=== PATIENT | female | born 1990 | race Hispanic/Latino ===

== ENCOUNTER 2016-12-13 18:18 | Emergency (ER) | payer OTHER | END 2016-12-13 20:41 | disposition left against medical advice (07) | LOC: M ED 18:18 | DX: Z53.29 Procedure and treatment not carried out because of patient's decision for other reasons (principal) ==

== ENCOUNTER 2017-02-01 15:44 | Emergency (ER) | payer OTHER ==
[~2017-02-01] VITALS: Ht 170.2 cm; Wt 68.0 kg
[2017-02-01] MEDS ORDERED: diphenhydrAMINE INJ 50MG/ML VIAL (J1200) IV ONE (18:00)
[2017-02-01] MEDS ORDERED: METOCLOPRAMIDE INJ 10MG/2ML VIAL (J2765) IV ONE (18:00)
[2017-02-01] MEDS ORDERED: NS 1,000 ML IV ONE (18:00)
[2017-02-01] MEDS ORDERED: KETOROLAC 30 MG/ML VIAL (J1885) IV ONE (18:00)
[2017-02-01 18:07] LABS: CONTROL LINE UCG INT CTR LINE PRESENT
[2017-02-01 18:32] LABS: BASO % 0.4 % (0.0-1.0); EOS # 0.1 K/mm3 (0.0-0.50); EOS % 1.6 % (0.0-3.0); LARGE UNSTAINED CELL # 0.2 K/mm3 (0.0-0.4); LARGE UNSTAINED CELL % 1.8 % (0.0-4.0); LYMPH # 2.9 K/mm3 (1.5-6.5); LYMPH % 30.4 % (24.0-44.0); MEAN CORPUSCULAR HEMOGLOBIN 29.3 pg (27.0-33.0); MEAN CORPUSCULAR HGB CONC 32.3 g/dl (32.0-36.5); MEAN CORPUSCULAR VOLUME 90.9 fl (80.0-96.0); MONO # 0.5 K/mm3 (0.0-0.8); MONO % 5.1 % (0.0-5.0); NEUTROPHILS # 5.5 K/mm3 (1.8-7.7); NEUTROPHILS % 60.7 % (36.0-66.0); PLATELET COUNT, AUTOMATED 284 k/mm3 (150-450); RED CELL DISTRIBUTION WIDTH 13.9 % (11.5-14.5)
[2017-02-01 18:48] LABS: ANION GAP 8 MEQ/L (8-16); BLOOD UREA NITROGEN 7 MG/DL (7-18); CALCIUM LEVEL 8.5 MG/DL (8.5-10.1); CARBON DIOXIDE LEVEL 28 MEQ/L (21-32); CHLORIDE LEVEL 104 MEQ/L (98-107); GLOMERULAR FILTRATION RATE > 60.0 (>60); GLUCOSE, FASTING 74 MG/DL (70-105); POTASSIUM SERUM 3.1 MEQ/L (3.5-5.1); SODIUM LEVEL 140 MEQ/L (136-145)
--- NOTE | 2017-02-01 19:10 | REPUSA ---
CLINICAL HISTORY: Headaches. TECHNIQUE: Multiple axial brain CT scan sections were obtained from base to vertex without contrast a dministration. COMMENTS: The study shows normal configuration of sella turcica. There are no intra or extra-axial collections. There is no mass effect or midline shift. There is no evidence of hematoma formation. No hydrocephal us is present. No abnormal calcifications are noted. No significant abnormalities are seen either in the posterior fossa or supratentorial compartment. The sinuses and mastoid air cells are patent. IMPRESSION: No evidence of acute intracranial pathology. Thank you for your kind referral of this patient.
[2017-02-01 19:39] VITALS: BP 111/62
[2017-02-01] MEDS ORDERED: IBUP80TA PO (19:42)
[2017-02-01] MEDS ORDERED: K-TA10TA2 PO (19:42)
[2017-02-04 00:08] LABS: IgG P18 AB Absent (.); IgG P23 AB Absent (.); IgG P28 AB Absent (.); IgG P30 AB Absent (.); IgG P41 AB Present (.); IgG P45 AB Absent (.); IgG P58 AB Absent (.); IgG P66 AB Absent (.); IgG P93 AB Absent (.); IgM P39 AB Absent (.); IgM P41 AB Present (.)
== END 2017-02-01 20:02 | disposition home or self-care (01) ==
LOC: M ED 18:27
DX: T68.XXXA Hypothermia, initial encounter (principal); R51 Headache
CPT/HCPCS: 70450; 80048; 84703; 85025; 86617; 96361; 96374; 96375; 99283; J1200; J1885; J2765

== ENCOUNTER 2017-02-28 15:18 | Emergency (ER) | payer OTHER ==
[~2017-02-28] VITALS: Ht 172.7 cm; Wt 62.8 kg
[~2017-02-28 15:18] MED LIST: IBUP80TA PO; K-TA10TA2 PO
[2017-02-28] MEDS ORDERED: TOPI200T4 PO (15:44)
[2017-02-28] MEDS ORDERED: TIZA2CAP3 PO (15:44)
[2017-02-28 17:08] VITALS: BP 130/80
== END 2017-02-28 17:10 | disposition home or self-care (01) ==
LOC: M ED 17:10
DX: Z32.01 Encounter for pregnancy test, result positive (principal)

== ENCOUNTER → 2017-03-24 | Outpatient (CLI) | payer OTHER ==
[~2017-03-24] MED LIST changes: +TIZA2CAP3 PO; +TOPI200T4 PO
[2017-03-24 13:22] LABS: BASO % 0.2 % (0.0-1.0); EOS # 0.1 K/mm3 (0.0-0.50); EOS % 0.6 % (0.0-3.0); LARGE UNSTAINED CELL # 0.1 K/mm3 (0.0-0.4); LARGE UNSTAINED CELL % 1.1 % (0.0-4.0); LYMPH # 1.1 K/mm3 (1.5-6.5); LYMPH % 11.7 % (24.0-44.0); MEAN CORPUSCULAR HEMOGLOBIN 31.1 pg (27.0-33.0); MEAN CORPUSCULAR HGB CONC 34.2 g/dl (32.0-36.5); MONO # 0.4 K/mm3 (0.0-0.8); MONO % 4.7 % (0.0-5.0); NEUTROPHILS # 7.6 K/mm3 (1.8-7.7); NEUTROPHILS % 81.6 % (36.0-66.0); PLATELET COUNT, AUTOMATED 274 k/mm3 (150-450); RED CELL DISTRIBUTION WIDTH 14.2 % (11.5-14.5); WHITE BLOOD COUNT 9.3 K/mm3 (4.0-10.0)
[2017-03-25 11:11] LABS: HBsAg Prenatal NEGATIVE (NEGATIVE)
== END ==
LOC: M SMT 09:55
PROVIDERS: ATTEND Specialist
DX: Z34.01 Encounter for supervision of normal first pregnancy, first trimester (principal)

== ENCOUNTER → 2017-06-08 | Outpatient (CLI) | payer OTHER ==
[~2017-06-08] MED LIST changes: +OXYC1TAB23 PO; +PRENTAB9 PO; -TOPI200T4 PO; +TOPI200T7 PO
== END ==
LOC: M SMT 11:46
PROVIDERS: ATTEND Advanced Practice Midwife
DX: Z13.71 Encounter for nonprocreative screening for genetic disease carrier status (principal)

== ENCOUNTER 2017-06-11 07:29 | Outpatient (CLI) | payer OTHER ==
[~2017-06-11] VITALS: Ht 172.7 cm; Wt 62.0 kg
[~2017-06-11 07:29] MED LIST changes: -OXYC1TAB23 PO; -PRENTAB9 PO
[2017-06-11 07:47] VITALS: BP 112/68
[2017-06-11] MEDS ORDERED: PRENTAB9 PO (07:50)
[2017-06-11 09:04] LABS: MEAN CORPUSCULAR HEMOGLOBIN 31.9 pg (27.0-33.0); MEAN CORPUSCULAR HGB CONC 34.4 g/dl (32.0-36.5); MEAN CORPUSCULAR VOLUME 92.7 fl (80.0-96.0); RED CELL DISTRIBUTION WIDTH 13.1 % (11.5-14.5); WHITE BLOOD COUNT 8.2 K/mm3 (4.0-10.0)
== END 2017-06-11 10:40 | disposition home or self-care (01) ==
LOC: M LDO 07:29
PROVIDERS: ATTEND Obstetrics & Gynecology
DX: O26.892 Other specified pregnancy related conditions, second trimester (principal); R10.2 Pelvic and perineal pain; Z3A.20 20 weeks gestation of pregnancy

== ENCOUNTER → 2017-07-27 | Outpatient (CLI) | payer OTHER ==
[~2017-07-27] MED LIST changes: +OXYC1TAB23 PO; +PRENTAB9 PO
[2017-07-27 17:56] LABS: MEAN CORPUSCULAR HEMOGLOBIN 32.5 pg (27.0-33.0); MEAN CORPUSCULAR HGB CONC 34.1 g/dl (32.0-36.5); MEAN CORPUSCULAR VOLUME 95.3 fl (80.0-96.0); RED CELL DISTRIBUTION WIDTH 13.4 % (11.5-14.5); WHITE BLOOD COUNT 9.3 K/mm3 (4.0-10.0)
== END ==
LOC: M SMT 11:05
PROVIDERS: ATTEND Obstetrics & Gynecology
DX: Z34.82 Encounter for supervision of other normal pregnancy, second trimester (principal)

== ENCOUNTER 2017-08-15 20:04 | Day surgery (SDC) | payer OTHER ==
[2017-08-15] VITALS (7 sets, daily range): BP systolic 110–143; BP diastolic 57–86
[~2017-08-15] VITALS: Ht 162.6 cm; Wt 70.3 kg
[2017-08-15] MEDS: SIMETHICONE 80 MG CHEW TAB PO SCH ×2 (09:49→16:00)
[2017-08-15] MEDS: FAMOTIDINE 20 MG TAB PO SCH ×2 (10:13→21:00)
--- NOTE | 2017-08-15 13:04 | REP ---
Renal ultrasound: The per the patient is approximate 29 weeks gestational age and complains of right flank pain. The kidneys are normal size. The right kidney measures 14 by 6 x 5 cm. Left kidney measures 12 x 6 x 6 cm. Renal cortical echogenicity is normal bilaterally. There is mild right hydronephrosis. There is no left hydronephrosis. There are no renal cysts, masses or calculi. The Doppler resistive index of the intraparenchymal arteries of the right kidney is 0.64 and left kidney 0.71. Bladder ultrasound: With color Doppler assessment there are bilateral ureteral jets into the urinary bladder. There are no bladder wall polyps or masses. Impression: There is mild right hydronephrosis. There is no left hydronephrosis. However, there are bilateral ureteral jets into the urinary bladder. Otherwise, essentially negative renal and bladder ultrasound. The heart rate is 153 beats per minute. Signed by Joe Lyman MD 08/15/2017 12:55 P
--- NOTE | 2017-08-15 13:05 | ED PDOC ---
Provider Note Pt reports extreme R groin pain extending to R flank. Pt reports pain is "constant", not rhythmic Abdomen soft, no UC on monitor. FH reassuring, Cat I Pt has tolerated small amounts PO diet Renal scan ordered. Luisa Harrison CNM Aug 15, 2017 13:05
[2017-08-15 14:14] LABS: BASO % 0.1 % (0.0-1.0); EOS % 0.2 % (0.0-3.0); LARGE UNSTAINED CELL # 0.2 K/mm3 (0.0-0.4); LARGE UNSTAINED CELL % 1.2 % (0.0-4.0); LYMPH # 1.1 K/mm3 (1.5-6.5); LYMPH % 8.2 % (24.0-44.0); MEAN CORPUSCULAR HEMOGLOBIN 32.7 pg (27.0-33.0); MEAN CORPUSCULAR HGB CONC 35.6 g/dl (32.0-36.5); MEAN CORPUSCULAR VOLUME 91.8 fl (80.0-96.0); MONO # 0.6 K/mm3 (0.0-0.8); MONO % 4.6 % (0.0-5.0); NEUTROPHILS # 11.3 K/mm3 (1.8-7.7); NEUTROPHILS % 85.8 % (36.0-66.0); PLATELET COUNT, AUTOMATED 212 k/mm3 (150-450); RED CELL DISTRIBUTION WIDTH 12.8 % (11.5-14.5); WHITE BLOOD COUNT 13.1 K/mm3 (4.0-10.0)
[2017-08-15 14:35] LABS: ALBUMIN 2.7 GM/DL (3.2-5.2); ALKALINE PHOSPHATASE 77 U/L (45-117); ALT/SGPT 15 U/L (12-78); ANION GAP 7 MEQ/L (8-16); AST/SGOT 10 U/L (15-37); BILIRUBIN,TOTAL 0.3 MG/DL (0.2-1.0); BLOOD UREA NITROGEN 4 MG/DL (7-18); CARBON DIOXIDE LEVEL 26 MEQ/L (21-32); CHLORIDE LEVEL 105 MEQ/L (98-107); CREATININE FOR GFR 0.42 MG/DL (0.55-1.02); GLOMERULAR FILTRATION RATE > 60.0 (>60); GLUCOSE, FASTING 82 MG/DL (70-105); POTASSIUM SERUM 3.8 MEQ/L (3.5-5.1); SODIUM LEVEL 138 MEQ/L (136-145); TOTAL PROTEIN 7.2 GM/DL (6.4-8.2)
--- NOTE | 2017-08-15 14:40 | ED PDOC ---
Provider Note Reviewed pt reports of previous appendicitis, pain status, labs and renal sono with Dr Scott. MRI, no contrast ordered per consult. Luisa Harrison CNM Aug 15, 2017 14:40
--- NOTE | 2017-08-15 16:50 | REP ---
Limited pelvic right lower quadrant sonography: History: Right lower quadrant pain. Question appendicitis. Findings: Scanning through the right lower quadrant of the abdomen is performed. heart rate is documented at 153 beats per minute in this patient. The appendix is not directly visualized. The right ovary is seen measuring 3.1 x 1.8 x 2.1 cm. It contains a 1.2 cm follicle cyst or corpus luteum cyst. No free fluid is seen. No evidence of abscess. Impression: Appendix not directly visualized. Normal right ovary seen. No free fluid, abscess or inflammatory change is seen by ultrasound. Signed by Killian Thomas MD 08/15/2017 06:54 P
--- NOTE | 2017-08-15 18:10 | REP ---
MRI abdomen and pelvis without contrast: History: Right lower quadrant pain. Question appendicitis. History of . Appendix not directly visualized by ultrasound. ERIC by prior sonography October 30, 2017. Technique: Axial, coronal and sagittal imaging planes are utilized. T1 and T2-weighted images are obtained. MRI findings: The appendix is fluid-filled with mild mural thickening and some periappendiceal fluid posterior to the lateral margin of the gravid uterus and just superior and medial to normal-appearing right maternal ovary. The findings are compatible with early acute appendicitis. There is a 6 mm low T1, low T2 signal intensity focus in the appendix above the fluid distended segment consistent with an appendicolith. No abscess is seen. The left maternal ovary is unremarkable, also displaced superior and laterally by the . A breech fetus is seen. An anterior placenta is noted with no evidence of previa. No morphologic or uterine abnormality. There is moderate right-sided hydronephrosis and hydroureter. Impression: MR findings compatible with early acute appendicitis, probable appendicolith. The appendix is dilated with mural thickening and mild pericolonic fluid. No abscess or free air is seen. The appendix is located just superior and medial to the right ovary. Moderate right-sided hydronephrosis is seen. Signed by Killian Thomas MD 08/15/2017 06:56 P
--- NOTE | 2017-08-15 18:56 | ED PDOC ---
Provider Note Item Value Date Time White Blood Count 13.1 K/mm3 H 08/15/17 1351 Hemoglobin 11.1 g/dl L 08/15/17 1351 Red Blood Count 3.39 M/mm3 L 08/15/17 1351 Hematocrit 31.1 % L 08/15/17 1351 Mean Corpuscular Volume 91.8 fl 08/15/17 1351 Mean Corpuscular Hemoglobin 32.7 pg 08/15/171 Mean Corpuscular Hemoglobin Concent 35.6 g/dl 08/15/171 Red Cell Distribution Width 12.8 % 08/15/17 1351 Platelet Count 212 k/mm3 08/15/17 1351 Neutrophils (%) (Auto) 85.8 % H 08/15/17 1351 Lymphocytes (%) (Auto) 8.2 % L 08/15/17 1351 Monocytes (%) (Auto) 4.6 % 08/15/17 1351 Eosinophils (%) (Auto) 0.2 % 08/15/17 1351 Basophils (%) (Auto) 0.1 % 08/15/171 Large Unclassified Cells % 1.2 % 08/15/17 1351 Neutrophils # (Auto) 11.3 K/mm3 H 08/15/17 1351 Lymphocytes # (Auto) 1.1 K/mm3 L 08/15/17 1351 Monocytes # (Auto) 0.6 K/mm3 08/15/17 1351 Eosinophils # (Auto) 0.0 K/mm3 08/15/17 1351 Basophils # (Auto) 0.0 K/mm3 08/15/17 1351 Large Unclassified Cells # 0.2 K/mm3 08/15/17 1351 27-year-old 2, para 1001, estimated date of delivery 10/28/2017, presents at 29 weeks 3 days with reports of abrupt onset of nausea, vomiting and right lower quadrant pain at midnight. Upon initial evaluation on labor and delivery by Dr. Ghotra. Patient was found to be davis. She received IV fluids and terbutaline 1 dose with resolution of the contractions. Electronic heart monitoring has remained reassuring. MRI findings were compatible with early acute appendicitis. Per consultation Dr. Scott, Dr. Chiu was notified and requested to consult. Luisa Harrison CNM Aug 15, 2017 18:56
[~2017-08-15 20:04] MED LIST changes: +ACETAMINOPHEN 500 MG TAB PO ONE; +BUPIVACAINE HCL 0.25% 30 ML VIAL As Ordered ONE; +NS 1,000 ML IV ONE; +NS 1,000 ML IV SCH; -OXYC1TAB23 PO; +PIPERACILLIN/TAZOBACTAM SOD 3.375 GM in D5W MINI-BAG PLUS 50 ML IV ONE; +SIMETHICONE 80 MG CHEW TAB PO PRN; +TERBUTALINE SULFATE 1 MG/ML VIAL (J3105) As Ordered ONE; +TERBUTALINE SULFATE 1 MG/ML VIAL (J3105) SC ONE
[2017-08-15] MEDS ORDERED: LIDOCAINE 2% INJ 100 MG/5 ML SDV (FOR ANES.) As Ordered ONE (20:10)
[2017-08-15] MEDS ORDERED: fentaNYL 100 MCG/2 ML INJECTION (J3010) As Ordered ONE ×3 (20:10→22:56)
[2017-08-15] MEDS ORDERED: PROPOFOL 200 MG/20 ML VIAL As Ordered ONE (20:10)
[2017-08-15] MEDS ORDERED: ROCURONIUM BROMIDE 50 MG/5 ML VIAL/SYRINGE As Ordered ONE (20:10)
[2017-08-15] MEDS ORDERED: MIDAZOLAM INJ 2 MG/2 ML VIAL (J2250) As Ordered ONE (20:52)
[2017-08-15] MEDS ORDERED: PHENYLephrine HCL 500 MCG/5 ML (100MCG/ML) SYRINGE (J2370) As Ordered ONE (21:17)
[2017-08-15] MEDS ORDERED: SUCCINYLCHOLINE 100 MG/5 ML SYRINGE (J0330) As Ordered ONE (21:20)
[2017-08-15] MEDS ORDERED: GLYCOPYRROLATE INJ 0.2 MG/ML 2 ML VIAL As Ordered ONE (21:27)
[2017-08-15] MEDS ORDERED: ONDANSETRON 4MG/2ML VIAL (J2405) As Ordered ONE (21:27)
[2017-08-15] MEDS ORDERED: NEOSTIGMINE 10 MG/10 ML VIAL (J2710) As Ordered ONE (21:27)
[2017-08-15] MEDS ORDERED: ACETAMINOPHEN TAB 650MG DOSE (2X325MG) PO PRN (22:45)
[2017-08-15] MEDS ORDERED: MORPHINE 2 MG/ML 1ML SYRINGE IV PRN (22:45)
[2017-08-15] MEDS ORDERED: METOCLOPRAMIDE INJ 10MG/2ML VIAL (J2765) IV PRN (22:45)
[2017-08-15] MEDS ORDERED: ONDANSETRON 4MG/2ML VIAL (J2405) IV PRN (22:45)
[2017-08-15] MEDS ORDERED: LR 1,000 ML IV SCH (22:45)
[2017-08-15] MEDS: fentaNYL 100 MCG/2 ML INJECTION (J3010) IV PRN ×2 (22:59→23:04)
[2017-08-16] VITALS (10 sets, daily range): BP systolic 100–124; BP diastolic 52–67
[2017-08-16] MEDS ORDERED: fentaNYL 100 MCG/2 ML INJECTION (J3010) IV PRN (00:30)
[2017-08-16] MEDS ORDERED: LR 1,000 ML IV SCH (00:30)
[2017-08-16] MEDS ORDERED: METOCLOPRAMIDE INJ 10MG/2ML VIAL (J2765) IV PRN (00:30)
[2017-08-16] MEDS ORDERED: ONDANSETRON 4MG/2ML VIAL (J2405) IV PRN (00:30)
[2017-08-16] MEDS: NORCO, ANEXSIA 5/325MG TABLET (HYDROcodone/ACETAMINOPHEN) PO PRN ×5 (02:08→21:22)
[2017-08-16] MEDS: PIPERACILLIN/TAZOBACTAM SOD 3.375 GM in D5W MINI-BAG PLUS 50 ML IV SCH ×3 (02:59→14:36)
[2017-08-16 08:10] LABS: BASO % 0.1 % (0.0-1.0); EOS % 0.4 % (0.0-3.0); LARGE UNSTAINED CELL # 0.2 K/mm3 (0.0-0.4); LARGE UNSTAINED CELL % 1.6 % (0.0-4.0); LYMPH # 1.3 K/mm3 (1.5-6.5); LYMPH % 13.2 % (24.0-44.0); MEAN CORPUSCULAR HEMOGLOBIN 32.9 pg (27.0-33.0); MEAN CORPUSCULAR HGB CONC 35.4 g/dl (32.0-36.5); MEAN CORPUSCULAR VOLUME 92.8 fl (80.0-96.0); MONO # 0.5 K/mm3 (0.0-0.8); NEUTROPHILS # 7.9 K/mm3 (1.8-7.7); NEUTROPHILS % 79.7 % (36.0-66.0); PLATELET COUNT, AUTOMATED 193 k/mm3 (150-450); RED CELL DISTRIBUTION WIDTH 12.8 % (11.5-14.5); WHITE BLOOD COUNT 9.9 K/mm3 (4.0-10.0)
--- NOTE | 2017-08-16 10:21 | RO ---
DATE OF PROCEDURE: 08/15/2017 PREOPERATIVE DIAGNOSES: 1. Acute appendicitis. 2. Intrauterine at 29-1/2 weeks' gestation. POSTOPERATIVE DIAGNOSES: 1. Acute appendicitis. 2. Intrauterine at 29-1/2 weeks' gestation. PROCEDURE PERFORMED: Open appendectomy. SURGEON: Kaveh Chiu MD LEATHER SKINNER: Bradly Scott MD ANESTHESIA: General. INDICATIONS FOR THE PROCEDURE: The patient is a 27-year-old woman who is approximately 29-1/2 weeks' gestation. She presented with approximately a day of abdominal pain, which became more localized to the right mid to lower abdomen. She underwent evaluation with an ultrasound, which was unrevealing; and an MRI then showed findings consistent with appendicitis. I was consulted, and she is now for an open appendectomy. DESCRIPTION OF PROCEDURE: Operative procedure: The patient was placed under general endotracheal anesthesia. A bump was placed beneath the right side of the abdomen to roll her slightly to the left. The patient's abdomen was prepped and draped in a sterile fashion. An approximately 7-8 cm slightly oblique right lower quadrant incision was made several centimeters below the level of the umbilicus. The incision was deepened through the subcutaneous tissues using the cautery. The external oblique aponeurosis was opened in the direction of its fibers. The underlying internal oblique muscle was spread. The edge of the rectus sheath was identified, and this was opened transversely. The muscle was preserved. but the sheath was divided over approximately 1-1/2 to 2 cm. The peritoneum was opened. On opening the peritoneum, there was some turbid, lightly-yellowish fluid, which was released. I obtained aerobic and anaerobic Culturettes. The peritoneum was opened further, and retractors were placed. Inspection revealed a small amount of turbid fluid, but this seemed to be localized. The uterus was noted with the right tube and ovary just about at the level of the umbilicus. Palpation lateral and posterior to the uterus identified the inflamed appendix. The distal third of the appendix was quite inflamed and coated with exudate. There did not appear to be a perforation. The appendix was grasped and delivered into the wound. Some peritoneal attachments were divided with the cautery. The mesoappendix was then clamped in several bites and divided and ligated with 0 chromic. In this manner, the appendix was freed down to the base. The base of the appendix was crushed with a straight clamp and ligated with 0 chromic, and the appendix was then transected and removed. The stump of the appendix was inverted beneath a pursestring suture of 3-0 Vicryl. The right paracolic gutter and the area adjacent to the uterus was then irrigated with some warm saline. The suction was inserted all the way down into the pelvis, and no additional fluid was returned. The peritoneum was then closed with a running suture of 0 chromic. The lateral edge of the rectus sheath was reconstructed with 0 Vicryl sutures. The fascia of the transversalis and internal oblique muscles was approximated also with interrupted simple sutures of 0 Vicryl. The wound was irrigated with saline between closure of each layer. Some 0.25% Marcaine was infiltrated into the muscle layers of the abdominal wall and also into the subcutaneous tissues around the skin edges. The external oblique aponeurosis was closed with a running suture of 0 Vicryl. The subcutaneous tissues were approximated with some 3-0 chromic and the skin edges with a running subcuticular 4-0 Vicryl and Steri-Strips. The patient tolerated the procedure well without apparent complication. She was awakened in the operating room, extubated, and moved to the recovery room in stable condition. THEE
[2017-08-17] VITALS: BP 113/59
[2017-08-17] MEDS: NORCO, ANEXSIA 5/325MG TABLET (HYDROcodone/ACETAMINOPHEN) PO PRN (01:40)
[2017-08-17 04:00] VITALS: BP 110/55
[2017-08-17 08:00] VITALS: BP 114/63
[2017-08-17] MEDS ORDERED: OXYC1TAB23 PO (08:51)
--- NOTE | 2017-08-17 09:50 | DSES ---
DATE OF ADMISSION: 08/15/2017 DATE OF DISCHARGE: 08/17/2017 27-year-old, (G) 1 female at 29 and 4/7 weeks gestation who presents with worsening nausea, vomiting and right sided abdominal pain. Her last one to two days, she also had heartburn. HOSPITAL COURSE: The patient was admitted to the emergency room and given IV hydration as well as terbutaline for uterine contractions. Over the course of several hours, her nausea and pain did not dramatically improve. Decision made to pursue imaging to check for appendicitis. A MRI of the abdomen was performed which revealed acute appendicitis. Consultation was obtained with Dr. Kaveh Chiu of general surgery. After a thorough review, decision was made to perform an appendectomy. Due to the gravid uterus being present, an open appendectomy was performed on 08/15/2017. Findings included acute appendicitis with an appendix that was not ruptured. The procedure was without complication. Her postoperative course was unremarkable. She had adequate return of bladder and bowel function. She had no fevers. monitoring revealed a normal tracing on multiple occasions after surgery. On postoperative day #2 she was deemed stable for discharge. ADMISSION DIAGNOSES: 1. 29 weeks . 2. Acute appendicitis. DISCHARGE DIAGNOSES: 1. 29 weeks . 2. Acute appendicitis. PROCEDURE: Mini laparotomy with appendectomy. DISPOSITION: The patient will followup with Dr. Scott in one week. Instructions were reviewed. She will also followup with Dr. Chiu from general surgery.
--- NOTE | 2017-08-17 22:21 | IPN ---
DATE: 08/17/2017 The patient is now day two from her open appendectomy. She has remained afebrile for the past 24 hours. She is tolerating a diet without difficulty, though she feels a bit full. She has been passing some flatus. Vital signs this morning showed temperature of 97.9, pulse of 80, respiration of 18 and blood pressure of 114/63. PHYSICAL EXAMINATION: The patient is alert and appears comfortable. Heart exam shows a regular rhythm. The lungs are clear. The abdomen is flat. The gravid uterus is palpable above the umbilicus. Her right lower quadrant incision is open to the air with her Steri-Strips in place. There is no undue swelling and no sign of redness. She has no new labs. IMPRESSION: The patient is doing well now postop day #2 from her open appendectomy. Her does not seem to have been adversely affected by the surgery. She has been undergoing periodic stress testing and no apparent abnormalities have been identified. PLAN: I discussed with Dr. Scott who believes the patient is ready for discharge. He will prescribe her some pain medications and stool softeners. He will see her back in the office next week. I advised the patient that she should followup with me in 10-14 days. She was counseled to avoid any strenuous physical activity. She can shower as desired and continue with a regular diet. She should call the office if she notes any problems. THEE
== END 2017-08-17 11:40 | disposition home or self-care (01) ==
LOC: M PED 20:04 → M SDC 20:04 → M PED 23:54 → M SDC 08-17 11:40
PROVIDERS: ATTEND Surgery
DX: O99.89 Other specified diseases and conditions complicating pregnancy, childbirth and the puerperium (principal); K35.80 Unspecified acute appendicitis; Z3A.29 29 weeks gestation of pregnancy; G43.909 Migraine, unspecified, not intractable, without status migrainosus; F32.9 Major depressive disorder, single episode, unspecified

== ENCOUNTER 2017-10-19 12:05 | Inpatient (IN) | payer OTHER ==
[~2017-10-19] VITALS: Ht 172.7 cm; Wt 76.8 kg
[2017-10-19] VITALS (14 sets, daily range): BP systolic 114–141; BP diastolic 55–78
[~2017-10-19 12:05] MED LIST changes: -ACETAMINOPHEN 500 MG TAB PO ONE; -BUPIVACAINE HCL 0.25% 30 ML VIAL As Ordered ONE; -NS 1,000 ML IV ONE; -NS 1,000 ML IV SCH; +OXYC1TAB23 PO; -PIPERACILLIN/TAZOBACTAM SOD 3.375 GM in D5W MINI-BAG PLUS 50 ML IV ONE; -SIMETHICONE 80 MG CHEW TAB PO PRN; -TERBUTALINE SULFATE 1 MG/ML VIAL (J3105) As Ordered ONE; -TERBUTALINE SULFATE 1 MG/ML VIAL (J3105) SC ONE
[2017-10-19] MEDS ORDERED: PENICILLIN G POTASSIUM IV 5 MU in D5W MINI-BAG PLUS 100 ML IV STA (12:14)
[2017-10-19] MEDS ORDERED: LACTATED RINGER'S 1000 ML IV STA (12:14)
[2017-10-19] MEDS ORDERED: miSOPROStol 50 MCG 1/2 TAB (S0191) PO SCH ×2 (13:00→14:00)
--- NOTE | 2017-10-19 13:13 | HPEPDOC ---
[facility] Medical History & Physical Date of Admission Oct 19, 2017 Other Provider DO Stacie Attending Physician: Luisa Harrison History and Physical 27 yo ERIC 10/29/2017 presents to office with complaints of water leaking since 829. Upon evaluation patient + for SROM, +pooling, +ferning, + nitrazine, SVE 1cm. sent to L and D for routine labor admission. Reports light bloody show, fetus active, occasional contractions. Patient reports she plans to use breathing and relaxation techniques to cope with labor. LMP 01/21/2017. Sono confirmed at 10 5/7 weeks gestation to confirm dates. Anatomy scan WNL. care was initiated at [facility] in the first trimester. has been complicated by open appendectomy at 29 weeks gestation, Divehi speaking, she and partner have understanding of basic Spanish. Desires BTL, consent signed 09/14/2017 OB Hx: 06/2011 40 0/7 weeks -male- 8lb 4oz Medical/Surgical HX: Open Appendectomy 2017 during Family Medical HX: Diabetes, Hypertension, Heart disease Social HX: Single, denies alcohol, denies drugs, denies smoking, denies hx of STDs, Denies abuse. Medications: None Allergies: NKDA PPW 137lb TW lbs Objective: Labs: Blood type O+, antibody negative, H & H 12.4/36.4, plt 274, rubella immune , VDRL non reactive, Urine culture no growth, Hep B negative, Hep C non reactive , HIV negative, Chlamydia and Gonorrhea negative, AFP4 negative, Diabetes screen 94, D antibody negative, GBS positive. VSS, NAD, coping well Abd: Gravid, non tender, longitudinal lie, vertex by Roderick and confirmed with presentation U/S. ctx: irregular, lasting 40-60 seconds FHR: 150, moderate variability, + accels, - decels SVE: 1 cm, posterior, difficult to exam due to maternal guarding. A: 27 yo at 38w 5d gestation with PROM. Category 1 tracing P: Admit to L and D with routine labor orders. Dr Quinones aware of patient's status. Treat for GBS +, may consider augment with Miso, Anticipate . Laboratory Data Labs 24H Laboratory Tests 2 10/19/17 12:17: Serology Scanned Report Hepatitis B Testing Home Medications Scheduled Multivitamins/ ( 27-0.8 mg) 1 Tab Tab, 1 TAB PO DAILY Scheduled PRN Oxycodone/Acetaminophen (Oxycodone/Acetaminophen 5-325 mg) 1 Tab Tab, 1-2 TAB PO Q6HP PRN for PAIN Allergies Coded Allergies: No Known Allergies (Unverified , 02/01/17) Luisa Harrison CNM Oct 19, 2017 13:13
[2017-10-19 13:47] LABS: MEAN CORPUSCULAR HEMOGLOBIN 29.3 pg (27.0-33.0); MEAN CORPUSCULAR HGB CONC 33.7 g/dl (32.0-36.5); MEAN CORPUSCULAR VOLUME 86.9 fl (80.0-96.0); PLATELET COUNT, AUTOMATED 249 10^3/uL (150-450); RED CELL DISTRIBUTION WIDTH 13.2 % (11.5-14.5); WHITE BLOOD COUNT 9.5 10^3/uL (4.0-10.0)
[2017-10-19] MEDS ORDERED: PENICILLIN G POTASSIUM IV 2.5 MU in APPROPRIATE DILUENT 1 EA IV SCH (16:15)
[2017-10-19] MEDS ORDERED: LR 1,000 ML IV SCH (16:43)
[2017-10-19] MEDS ORDERED: OXYTOCIN DRIP 30 UNITS in APPROPRIATE DILUENT 1 EA IV SCH (16:45)
--- NOTE | 2017-10-19 18:49 | IPNPDOC ---
Text Note Date of Service The patient was seen on 10/19/17. NOTE S:Patient doing well. OOB at yenifer. Breathing through contractions, comfortable. NAD talking and smiling between contractions O: BP 128/77, P-72, R-16, T 99.9 FHR: 145, moderate variability, + accels, - decels, category 1 tracing CTX: 2-3mins,50-70secs, moderate to palpate. SVE: 4cm/90/-1 A:38 5/7 weeks gestation in labor. Category 1 tracing P: Continue to monitor. Start Pitocin for augmentation. Anticipate . VS,Fishbone, I+O VS, Fishbone, I+O Laboratory Tests 10/19/17 13:31 Red Blood Count 3.35 L, Mean Corpuscular Volume 86.9, Mean Corpuscular Hemoglobin 29.3, Mean Corpuscular Hemoglobin Concent 33.7, Red Cell Distribution Width 13.2 Vital Signs Date Time Temp Pulse Resp B/P (MAP) Pulse Ox O2 Delivery O2 Flow Rate FiO2 10/19/17 17:37 99.9 72 16 128/77 (94) I&O- Last 24 Hours up to 6 AM 10/20/17 06:00 Intake Total 1850 ml Balance 1850 ml Luisa Harrison CNM Oct 19, 2017 18:49
[2017-10-19] MEDS ORDERED: SLF 3 ML SYR IV SCH (19:00)
[2017-10-19] MEDS ORDERED: SLF 3 ML SYR IV PRN (19:00)
[2017-10-19] MEDS ORDERED: RHOGAM 300 MCG (1500 IU) INJ (J2790) IM SCH (20:30)
[2017-10-19] MEDS ORDERED: DOCUSATE SODIUM 100 MG CAP PO PRN (20:30)
[2017-10-19] MEDS ORDERED: DIBUCAINE 1% OINTMENT 30GM TOP PRN (20:30)
[2017-10-19] MEDS ORDERED: MEASLES,MUMPS,RUBELLA VACCINE INJ (MMR-II) (90707) SC SCH (20:30)
[2017-10-19] MEDS ORDERED: LIDOCAINE 1% MDV INJ 50 ML VIAL INFIL ONE (20:30)
[2017-10-19] MEDS ORDERED: MOM 30ML SUSPENSION UDC PO PRN (20:30)
[2017-10-19] MEDS ORDERED: METHYLERGONOVINE MALEATE 0.2 MG TAB PO ONE (20:30)
[2017-10-19] MEDS: METHYLERGONOVINE MALEATE 0.2 MG TAB PO SCH (20:30)
[2017-10-19] MEDS: IBUPROFEN 800 MG TAB PO PRN (20:40)
--- NOTE | 2017-10-19 20:50 | DNPDOC ---
[facility] Delivery Note Delivery Note DATE OF DELIVERY: 10/19/2017 PREDELIVERY DIAGNOSIS: 38 5/7 weeks' gestation and labor. POST DELIVERY DIAGNOSIS: Delivered. PROCEDURE: Spontaneous vaginal delivery. PROVIDER: Dianna Harrison CNM and Larissa PRESLEY ANESTHESIA: none. ESTIMATED BLOOD LOSS: 400 mL. FINDINGS: 6 pound 9 ounce male , Score 9/10, no nuchal cord. DELIVERY SUMMARY: Patient is a 27-year-old 2 now para 2001 who was admitted to labor and delivery for PROM at 0830. GBS +, treated during labor with adequate doses. Labor was augmented with misoprostol PO and pitocin IV. Patient utilized physiologic coping mechanisms with deep breathing and relaxation techniques. Fully dilated at 1944. Delivered a viable male in that restituted to [facility] at 1950. Infant was placed on maternal abdomen for transitioning. Cord clamped times 2 and cut by FOB after pulsation ceased. Placenta Palafox with three vessel cord intact delivered at 1954. Fundus was firm with massage and IV Pitocin bolus with excellent hemostasis. Perineum, cervix and vagina were inspected and noted to have a first degree laceration with left labial extension. Repaired with a vicryl rapide 3-0 with excellent hemostasis. EBL 400ml. weighed 6lb 9oz/2970 grams. Apgars 9/10. Parents are naming their son Zan. Mother is and bottle feeding. was attended by Larissa PRESLEY and was directly supervised by myself. Sponge, sharp and instrument count correct. Luisa Harrison CNM Oct 19, 2017 20:50
[2017-10-19] MEDS: ACETAMINOPHEN 500 MG TAB PO PRN (23:16)
[2017-10-20] MEDS: METHYLERGONOVINE MALEATE 0.2 MG TAB PO SCH ×3 (02:07→15:07)
[2017-10-20 06:24] VITALS: BP 116/78
--- NOTE | 2017-10-20 07:07 | IPNPDOC ---
Text Note Date of Service The patient was seen on 10/20/17. NOTE Patient sitting up in bed bonding with talking on the phone and smiling. Patient OOB at yenifer, taking Motrin and Tylenol as needed. Initiated breast feeding. Infant fed after and has been sleeping and unable to latch and feed since. O:VSS Breast- nipple intact, no redness, no bleeding no cracking Abd- Fundus firm at U Perineum- Edematous, no hematoma, small flow. A: Post Day 1. Breast feeding P: Continue post care. Anticipate D/C tomorrow. Encourage to follow up with a child development consultant and nurses for Breast feeding support. VS,Fishbone, I+O VS, Fishbone, I+O Laboratory Tests 10/19/17 13:31 Red Blood Count 3.35 L, Mean Corpuscular Volume 86.9, Mean Corpuscular Hemoglobin 29.3, Mean Corpuscular Hemoglobin Concent 33.7, Red Cell Distribution Width 13.2 Vital Signs Date Time Temp Pulse Resp B/P (MAP) Pulse Ox O2 Delivery O2 Flow Rate FiO2 10/20/17 06:24 98.9 75 18 116/78 (91) Luisa Harrison CNM Oct 20, 2017 07:07
[2017-10-20] MEDS: PRENATAL VITAMINS CHEWABLE TABLET PO SCH (08:39)
[2017-10-20] MEDS: IBUPROFEN 800 MG TAB PO PRN (08:40)
[2017-10-20] MEDS ORDERED: INFLUENZA QUADRIVALENT PF VACCINE 0.5ML SYRINGE (90686) IM ONE (09:00)
[2017-10-20] MEDS ORDERED: CALCIUM CARBONATE 500 MG CHEW U/D PO PRN (10:15)
[2017-10-20] MEDS: ACETAMINOPHEN 500 MG TAB PO PRN (17:21)
[2017-10-20 18:28] VITALS: BP 132/77
[2017-10-20] MEDS ORDERED: METHYLERGONOVINE MALEATE 0.2 MG TAB PO PRN (20:00)
[2017-10-21] MEDS: ACETAMINOPHEN 500 MG TAB PO PRN (04:35)
[2017-10-21 06:17] VITALS: BP 106/60
[2017-10-21] MEDS: PRENATAL VITAMINS CHEWABLE TABLET PO SCH (09:51)
[2017-10-21] MEDS ORDERED: PRENTAB9 PO (16:21)
[2017-10-21] MEDS ORDERED: IBUP-1114 PO (16:21)
[2017-10-21] MEDS ORDERED: ACET50TA PO (16:21)
== END 2017-10-21 16:30 | disposition home or self-care (01) | DRG 560 ==
LOC: M LDI 12:05 → M OBS 22:30
PROVIDERS: ADMIT Advanced Practice Midwife; ATTEND Advanced Practice Midwife
PROC: 10E0XZZ Delivery of Products of Conception, External Approach (ICD-10-PCS; principal; 2017-10-19)
PROC: 0HQ9XZZ Repair Perineum Skin, External Approach (ICD-10-PCS; 2017-10-19)
DX: O42.02 Full-term premature rupture of membranes, onset of labor within 24 hours of rupture (principal); O99.824 Streptococcus B carrier state complicating childbirth; O70.0 First degree perineal laceration during delivery; Z3A.38 38 weeks gestation of pregnancy; Z37.0 Single live birth

== ENCOUNTER → 2017-11-09 | Outpatient (CLI) | payer OTHER ==
[~2017-11-09] MED LIST changes: +ACET50TA PO; +IBUP-1114 PO
[2017-11-09 17:40] LABS: THYROXINE (T4) 8.7 UG/DL (4.5-12.0)
== END ==
LOC: M SMT 15:30
PROVIDERS: ATTEND Advanced Practice Midwife
DX: F32.89 Other specified depressive episodes (principal)

== ENCOUNTER 2017-12-28 05:52 | Day surgery (SDC) | payer OTHER ==
[2017-12-28] MEDS ORDERED: NEOSTIGMINE 10 MG/10 ML VIAL (J2710) (05:53)
[2017-12-28 06:18] LABS: HEMATOCRIT 36.9 % (36.0-47.0); HEMOGLOBIN 12.3 g/dl (12.0-16.0); MEAN CORPUSCULAR HEMOGLOBIN 29.2 pg (27.0-33.0); MEAN CORPUSCULAR HGB CONC 33.3 g/dl (32.0-36.5); MEAN CORPUSCULAR VOLUME 87.6 fl (80.0-96.0); PLATELET COUNT, AUTOMATED 239 10^3/uL (150-450); RED BLOOD COUNT 4.21 10^6/uL (4.00-5.40); RED CELL DISTRIBUTION WIDTH 15.2 % (11.5-14.5)
[2017-12-28 06:29] LABS: CONTROL LINE HCG INT CTR LINE PRESENT; HCG, SERUM QUALITATIVE NEGATIVE (NEGATIVE)
[2017-12-28] MEDS: LR 1,000 ML IV (06:30)
[2017-12-28] MEDS ORDERED: MIDAZOLAM INJ 2 MG/2 ML VIAL (J2250) As Ordered (07:07)
[2017-12-28] MEDS ORDERED: fentaNYL 100 MCG/2 ML INJECTION (J3010) As Ordered (07:07)
[2017-12-28] MEDS ORDERED: SILVER NITRATE APPLICATOR As Ordered (07:21)
[2017-12-28] MEDS ORDERED: ROCURONIUM BROMIDE 50 MG/5 ML VIAL As Ordered (07:45)
[2017-12-28] MEDS ORDERED: ONDANSETRON 4MG/2ML VIAL (J2405) As Ordered (07:45)
[2017-12-28] MEDS ORDERED: PROPOFOL 200 MG/20 ML VIAL As Ordered (07:45)
[2017-12-28] MEDS ORDERED: dexameTHASONE 4 MG/ML 1ML VIAL (J1100) As Ordered (07:45)
[2017-12-28] MEDS ORDERED: KETOROLAC 60 MG/2 ML VIAL (J1885) As Ordered (07:45)
[2017-12-28] MEDS ORDERED: LIDOCAINE 2% INJ 100 MG/5 ML SDV (FOR ANES.) As Ordered (07:45)
[2017-12-28] MEDS: BUPIVACAINE HCL 0.25% 10 ML VIAL As Ordered (08:00)
[2017-12-28] MEDS ORDERED: GLYCOPYRROLATE INJ 0.2 MG/ML 2 ML VIAL As Ordered (08:01)
[2017-12-28] MEDS ORDERED: NEOSTIGMINE 10 MG/10 ML VIAL (J2710) As Ordered (08:01)
[2017-12-28] MEDS: NORCO, ANEXSIA 5/325MG TABLET (HYDROcodone/ACETAMINOPHEN) PO (09:12)
[2017-12-28] MEDS ORDERED: ONDANSETRON 4MG/2ML VIAL (J2405) IV (09:15)
[2017-12-28] MEDS ORDERED: fentaNYL 100 MCG/2 ML INJECTION (J3010) IV (09:15)
[2017-12-28] MEDS ORDERED: LR 1,000 ML IV (09:15)
== END 2017-12-28 11:35 | disposition home or self-care (01) ==
LOC: M SDC 05:52
DX: Z30.2 Encounter for sterilization (principal); K21.9 Gastro-esophageal reflux disease without esophagitis; F32.9 Major depressive disorder, single episode, unspecified; G43.909 Migraine, unspecified, not intractable, without status migrainosus; Z79.899 Other long term (current) drug therapy
CPT/HCPCS: 58661

== ENCOUNTER 2018-01-03 09:18 | Emergency (ER) | payer OTHER ==
[2018-01-03] MEDS: GI COCKTAIL 50ML BTL(HYOSCYAMINE/MAALOX/LIDOCAINE VISCOUS)(1:3:1) PO (10:50)
[2018-01-03] MEDS: MORPHINE 2 MG/ML 1ML SYRINGE IV (10:53)
[2018-01-03 10:54] LABS: BASO % 0.2 % (0.0-1.0); EOS # 0.2 10^3/uL (0.0-0.50); HEMATOCRIT 37.3 % (36.0-47.0); HEMOGLOBIN 12.3 g/dl (12.0-16.0); IMMATURE GRANULOCYTE % 0.2 % (0-0); LYMPH # 2.9 10^3/uL (1.5-6.5); LYMPH % 35.7 % (24.0-44.0); MEAN CORPUSCULAR HEMOGLOBIN 29.1 pg (27.0-33.0); MEAN CORPUSCULAR VOLUME 88.4 fl (80.0-96.0); MONO # 0.6 10^3/uL (0.0-0.8); MONO % 7.5 % (0.0-5.0); NEUTROPHILS # 4.4 10^3/uL (1.8-7.7); NEUTROPHILS % 54.4 % (36.0-66.0); PLATELET COUNT, AUTOMATED 312 10^3/uL (150-450); RED BLOOD COUNT 4.22 10^6/uL (4.00-5.40); RED CELL DISTRIBUTION WIDTH 15.1 % (11.5-14.5); WHITE BLOOD COUNT 8.2 10^3/uL (4.0-10.0)
[2018-01-03 11:06] LABS: D-DIMER QUANT 472.3 ng/ml (<500)
[2018-01-03 11:30] LABS: ALBUMIN 3.7 GM/DL (3.2-5.2); ALBUMIN/GLOBULIN RATIO 0.84 (1.00-1.93); ALKALINE PHOSPHATASE 84 U/L (45-117); ALT/SGPT 62 U/L (12-78); ANION GAP 7 MEQ/L (8-16); AST/SGOT 33 U/L (7-37); BILIRUBIN,TOTAL 0.3 MG/DL (0.2-1.0); BLOOD UREA NITROGEN 6 MG/DL (7-18); CALCIUM LEVEL 9.2 MG/DL (8.5-10.1); CARBON DIOXIDE LEVEL 29 MEQ/L (21-32); CHLORIDE LEVEL 102 MEQ/L (98-107); CPK CREATINE PHOSPHOKINASE 65 U/L (26-192); CREATININE FOR GFR 0.68 MG/DL (0.55-1.30); GLOMERULAR FILTRATION RATE > 60.0 (>60); GLUCOSE, FASTING 85 MG/DL (70-100); LIPASE 110 U/L (73-393); MB/CK RELATIVE INDEX 1.53 (< OR =4); POTASSIUM SERUM 4.3 MEQ/L (3.5-5.1); SODIUM LEVEL 138 MEQ/L (136-145); TOTAL PROTEIN 8.1 GM/DL (6.4-8.2); TROPONIN I < 0.02 NG/ML (< 0.10)
== END 2018-01-03 12:20 | disposition home or self-care (01) ==
LOC: M ED 09:18
DX: R07.89 Other chest pain (principal); R94.31 Abnormal electrocardiogram [ECG] [EKG]; Z98.890 Other specified postprocedural states; Z86.69 Personal history of other diseases of the nervous system and sense organs; Z82.49 Family history of ischemic heart disease and other diseases of the circulatory system
CPT/HCPCS: 71046